=== PATIENT | female | born 1965 | race Caucasian/White ===

== ENCOUNTER 2020-11-15 16:03 | Emergency (ER) | payer BC ==
[~2020-11-15] VITALS: Ht 165.1 cm; Wt 72.2 kg
[2020-11-15 17:31] LABS: BASO % 0.5 % (0.0-1.0); EOS # 0.2 10^3/uL (0.0-0.5); EOS % 2.3 % (0.0-3.0); HEMATOCRIT 45.3 % (36.0-47.0); HEMOGLOBIN 14.9 g/dl (12.0-15.5); LYMPH # 1.8 10^3/uL (1.5-5.0); LYMPH % 23.3 % (24.0-44.0); MEAN CORPUSCULAR HEMOGLOBIN 32.6 pg (27.0-33.0); MEAN CORPUSCULAR HGB CONC 32.9 g/dl (32.0-36.5); MEAN CORPUSCULAR VOLUME 99.1 fl (80.0-96.0); MONO # 0.5 10^3/uL (0.0-0.8); MONO % 6.6 % (2.0-8.0); NEUTROPHILS # 5.3 10^3/uL (1.5-8.5); PLATELET COUNT, AUTOMATED 383 10^3/uL (150-450); RED BLOOD COUNT 4.57 10^6/uL (4.00-5.40); WHITE BLOOD COUNT 7.9 10^3/uL (4.0-10.0)
[2020-11-15 17:41] LABS: INR 0.92; PROTHROMBIN TIME 12.5 SECONDS (12.5-14.3)
[2020-11-15 17:55] LABS: ALT/SGPT 19 U/L (12-78); BILIRUBIN,TOTAL 0.9 MG/DL (0.2-1.0); BLOOD UREA NITROGEN 15 MG/DL (7-18); CALCIUM LEVEL 9.6 MG/DL (8.5-10.1); CARBON DIOXIDE LEVEL 29 MEQ/L (21-32); CHLORIDE LEVEL 106 MEQ/L (98-107); CREATININE FOR GFR 0.69 MG/DL (0.55-1.30); GLOMERULAR FILTRATION RATE > 60.0 (>51); GLUCOSE, FASTING 87 MG/DL (70-100); POTASSIUM SERUM 3.9 MEQ/L (3.5-5.1); SODIUM LEVEL 143 MEQ/L (136-145)
[2020-11-15] MEDS ORDERED: ISOVUE-370 76% 100ML VIAL As Ordered ONE (19:34)
--- NOTE | 2020-11-15 21:02 | REPVR ---
PROCEDURE INFORMATION: Exam: CT Abdomen And Pelvis With Contrast Exam date and time: 11/15/2020 7:48 PM Age: 55 years old Clinical indication: Other: Abdominal pain/ rectal bleeding TECHNIQUE: Imaging protocol: Computed tomography of the abdomen and pelvis with contrast. Radiation optimization: All CT scans at this facility use at least one of these dose optimization techniques: automated exposure control; mA and/or kV adjustment per patient size (includes targeted exams where dose is matched to clinical indication); or iterative reconstruction. Contrast material: ISOVUE 370; Contrast volume: 100 ml; Contrast route: INTRAVENOUS (IV); COMPARISON: No relevant prior studies available. FINDINGS: Lungs: There are bibasilar dependent changes. Liver: Right hepatic mass measuring 4.5 cm with nodular pattern enhancement, probable hemangioma. There are a few additional small hepatic hypodensities which are too small to characterize. Gallbladder and bile ducts: Normal. No calcified stones. No ductal dilation. Pancreas: Normal. No ductal dilation. Spleen: Normal. No splenomegaly. Adrenal glands: Normal. No mass. 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 No hydronephrosis. Stomach and bowel: Mild diverticulosis without diverticulitis. Thickening of the descending colon is at least in part secondary to incomplete distention. Appendix: Normal appendix. Intraperitoneal space: Unremarkable. No free air. No significant fluid collection. Vasculature: There are phleboliths within the pelvis. Lymph nodes: Unremarkable. No enlarged lymph nodes. Urinary bladder: Unremarkable as visualized. Reproductive: Unremarkable as visualized. Bones/joints: There are relatively mild degenerative changes involving the spine. Soft tissues: Small fat containing umbilical hernia. IMPRESSION: 1. Thickening of the descending colon is likely at least in part secondary to under distention. Nonspecific colitis is not excluded. 2. 4.5 cm right hepatic mass with nodular pattern of enhancement, probable hemangioma. Electronically signed by: Arthur Posey On 11/15/2020 21:01:39 PM
[2020-11-15] MEDS ORDERED: DICY20TA11 PO (21:28)
[2020-11-15] MEDS ORDERED: DICYCLOMINE 10 MG CAP PO ONE (21:35)
[2020-11-15] MEDS ORDERED: AUGM875T28 PO (21:35)
[2020-11-15] MEDS ORDERED: AUGMENTIN 875 MG TAB PO ONE (21:45)
[2020-11-15 22:00] VITALS: BP 131/70
== END 2020-11-15 22:09 | disposition home or self-care (01) ==
LOC: M ED 16:03
DX: K52.9 Noninfective gastroenteritis and colitis, unspecified (principal); R10.9 Unspecified abdominal pain; R93.2 Abnormal findings on diagnostic imaging of liver and biliary tract
CPT/HCPCS: 74177; 80053; 85025; 85610; 86850; 86900; 86901; 99284; Q9967

== ENCOUNTER → 2022-03-09 | Outpatient (REF) | payer BC ==
[~2022-03-09] MED LIST: AUGM875T28 PO; DICY20TA20 PO
== END ==
LOC: M SFHCDERM 13:11
PROVIDERS: ATTEND Nurse Practitioner Family
DX: L82.1 Other seborrheic keratosis (principal); L85.9 Epidermal thickening, unspecified

== ENCOUNTER → 2022-10-14 | Outpatient (CLI) | payer BC | LOC: M WUC 08:49 | PROVIDERS: ATTEND Nurse Practitioner Family | DX: M17.11 Unilateral primary osteoarthritis, right knee (principal) ==

== ENCOUNTER → 2023-03-29 | Day surgery (SDC) | payer BC ==
[~2023-03-29] VITALS: Ht 165.1 cm; Wt 77.2 kg
[~2023-03-29] MED LIST changes: +ALBU2.5V10 INH; +AMIT10TA7 PO; +NS 1,000 ML IV ONE; +OMEP-173 PO; +VITMTA PO; +propofoL 200 MG/20 ML VIAL As Ordered ONE
[2023-03-29 11:31] VITALS: TEMP 97
[2023-03-29 11:50] VITALS: BP 116/59; O2SAT 96
== END | disposition home or self-care (01) ==
LOC: M OPP 08:57
PROVIDERS: ATTEND Surgery
DX: R19.5 Other fecal abnormalities (principal); K64.0 First degree hemorrhoids; K58.9 Irritable bowel syndrome, unspecified; J45.909 Unspecified asthma, uncomplicated; Z79.899 Other long term (current) drug therapy

== ENCOUNTER → 2023-11-14 | Outpatient (CLI) | payer BC ==
[~2023-11-14] MED LIST changes: -NS 1,000 ML IV ONE; -propofoL 200 MG/20 ML VIAL As Ordered ONE
== END ==
LOC: M WUC 15:27
PROVIDERS: ATTEND Physician Assistant Medical
DX: R05.3 Chronic cough (principal)

== ENCOUNTER → 2024-03-12 | Outpatient (CLI) | payer BC | LOC: M PLAIMG 13:38 | PROVIDERS: ATTEND Physician Assistant | DX: R91.8 Other nonspecific abnormal finding of lung field (principal) ==

== ENCOUNTER → 2024-09-24 | Outpatient (CLI) | payer BC ==
[~2024-09-24] MED LIST changes: +METHACHOLINE KIT (6 VIAL.NEB PREMIX) INH ONE
== END ==
LOC: M LAB 09-19 08:26 → M CARPUL 09:00
PROVIDERS: ATTEND Physician Assistant
DX: R06.00 Dyspnea, unspecified (principal)

== ENCOUNTER → 2025-01-03 | Outpatient (REF) | payer BC ==
[~2025-01-03] MED LIST changes: +AMIT10TA11 PO; -AMIT10TA7 PO; -METHACHOLINE KIT (6 VIAL.NEB PREMIX) INH ONE
== END ==
LOC: M SFHCDERM 13:14
PROVIDERS: ATTEND Nurse Practitioner Family
DX: B07.9 Viral wart, unspecified (principal)